=== PATIENT | female | born 1945 | race Caucasian/White ===

== ENCOUNTER → 2020-12-07 | Outpatient (CLI) | payer MEDICARE ==
[~2020-12-07] MED LIST: LIDOCAINE 1% Multi-Dose 20 ML VIAL. INJ ONE
--- NOTE | 2020-12-07 15:07 | RAD ---
CLINICAL HISTORY: Reason: Right Thyroid Biopsy Inferior Nodule / Spl. Instructions: / History: COMPARISON: None available. PROCEDURE: Preliminary sonographic images of the thyroid gland were obtained. 2 right thyroid nodules are ident ified. The procedure and risks of ultrasound guided aspiration were explained to the patient and informed wr itten consent obtained. Verification pause was observed. Laterality was confirmed. The site of aspi ration was marked. Using standard sterile technique, 4 25 G fine needle aspirations of the inferior right thyroid nodul e were obtained. Using standard sterile technique, 4 25 G fine needle aspirations of the superior right thyroid nodul e were obtained. There were no immediate complications. IMPRESSION: Successful ultrasound-guided FNA of both thyroid nodules. Electronically signed by: Zack Hardy MD (12/07/2020 3:04 PM) [facility]
--- NOTE | 2020-12-08 14:08 | PATHOLOGY ---
Note [facility] Accession Number: [id number] TESTS RESULT FLAG UNITS REF RANGE LAB Clinician Provided Cytology Information No. of containers..01 Other (Miscellaneous) Source: RIGHT MID THY DIAGNOSIS: RIGHT MID THY NEGATIVE FOR MALIGNANT CELLS. [place] CATEGORY II(benign) Comment: SPECIMEN CONSISTS OF BENIGN FOLLICULAR CELLS, HEMOSIDERIN-LADEN MACROPHAGES, COLLOID, AND BLOOD. THIS PATTERN IS CONSISTENT WITH A COLLOID NODULE. THIS INTERPRETATION INCLUDES EVALUATION OF A CELL BLOCK. Pathologist ICD10: 02 E04.1 Signed out by: 02 Velma Gillis MD, Pathologist NPI- [id number] Performed by: Lynn Montenegro, Wet Trimmer ([facility]) Gross description: 20ML, CLEAR PINK, 2H 2A 2F /LCS 12/08/2020 0425 Local FLAG LEGEND: L-Low Normal,H-High Normal,LL-Alert Low,HH-Alert High <-Panic Low,>-Panic High,A-Abnormal,AA-Critical Abnormal Performed at: [facility] [address] [place] [address] [address] [place] [address] Tavo Villarreal MD, 02 [facility] [address] [address] Abigail Pritchard MD, Specimen Comment: A courtesy copy of this report has been sent to [phone], [phone] Specimen Comment: [id number], Specimen Comment: Report sent to DR. GRADY, DR BELLO / DR BAILON Specimen Comment: A duplicate report has been generated due to demographic updates. Performed at: [address], [place] [id number] MD Tavo Villarreal MD Phone: [phone]
== END | disposition home or self-care (01) ==
LOC: US 11:16
PROVIDERS: ATTEND Otolaryngology
DX: E04.2 Nontoxic multinodular goiter (principal)
CPT/HCPCS: 10005; 10006; J3490